=== PATIENT | female | born 1945 | race Caucasian/White ===

== ENCOUNTER 2023-02-02 18:08 | Emergency (ER) | payer MEDICARE, SELFPAY ==
[2023-02-02 18:10] VITALS: BP 171/80; PULSE 72; RESP 18; TEMP 36.8; O2SAT 98; BMI 29.2
--- NOTE | 2023-02-02 18:35 | HMH.EDGENADL ---
Discharge Plan Disposition Patient Disposition: Home, Self-Care Referrals Follow up/Referrals: Molina Keen [Primary Care Provider] - See instructions Activity Restrictions/Add. Instructions Additional Instructions/Restrictions: Bilateral conjunctivitis. The etiology of this could be allergic with the itching that you been feeling but we will be treating this for possible bacterial with the antibiotic solution that I gave you. You may put 1 to 2 drops in both eyes 4-6 times daily for 5 to 7 days. Additionally do cool compresses over this as well. Return with any worsening symptoms. Clinical Impressions Clinical Impression: Acute conjunctivitis, bilateral Discharge ED Provider: Jose Elias Johns General Adult HPI General Chief complaint: Eye Problems Stated complaint: BL eye pain Time Seen by Provider: 02/02/23 18:17 Mode of Arrival: Ambulatory Limitations: No Limitations Description of Symptoms (Recalled from ER Triage Doc. by RN): PT REPORTS BILATERAL EYE DISCHARGE AND REDNESS THAT STARTED THIS AM History of Present Illness HPI narrative: Patient is a 77-year-old female here with eye redness and discharge. This has been going on since this morning. States that it itches some but she has some pain associated with it as well. No trauma to her eye no foreign body sensation. Her visual acuity is normal and she is able to open her eye. No fevers or chills or other concomitant respiratory viral symptoms. No one sick around her. Related Data Allergies Allergy/AdvReac Type Severity Reaction Status Date / Time No Known Allergies Allergy Verified 02/02/23 18:24 [facility] Disclaimer: The information contained in this section may have been updated after the patient was seen, as this information can be updated by other users. Social History Smoking Status: Never smoker alcohol intake: never current occupational status: other Travel in the last 8 weeks: None ROS Obtained: Yes All systems reviewed & no additional complaints except as documented Physical Exam General General appearance: alert Eye Eye exam: Present conjunctival redness and discharge Respiratory Respiratory exam: Present normal lung sounds bilaterally Cardiovascular Cardiovascular exam: Present regular rate; Absent tachycardia Neurological Exam Neurological exam: Present alert Medical Decision Making Anthony Inquiry Pt receiving controlled substance: No Vital Signs: 02/02/23 18:10 Temperature 98.2 F Temperature Source Oral Pulse Rate [Radial] 72 Respiratory Rate 18 Blood Pressure [Right Arm] 171/80 H Blood Pressure Mean [Right Arm] 110 Blood Pressure Source [Right Arm] Automatic Cuff Blood Pressure Position [Right Arm] Sitting 02 Sat by Pulse Oximetry 98 Oxygen Delivery Method Room Air Medical Decision Narrative: Patient clinically has bilateral conjunctivitis. Etiology could be allergic viral or bacterial. Topical antibiotic solution in her eye box was provided to the patient she has been advised to take this 4-6 times a day for the next 5 to 7 days. Cool compresses were discussed as well as oral antihistamine agents for possible allergic reaction. Indistinguishable clinically what the causes but will treat for bacterial primarily. She was discharged in stable condition and advised to return with worsening symptoms Critical Care Time Critical Care Time Critical Care Time: No Attestation: On 02/02/23, the high probability of a clinically significant, sudden or life threatening deterioration of the following system(s) required my full and direct attention, intervention and personal management. The time I documented below is in addition to time spent performing reported procedures but includes the following listed in this critical care notation.
[2023-02-02 18:45] VITALS: BP 171/80; PULSE 72; RESP 16; TEMP 36.7
== END 2023-02-02 18:46 | disposition home or self-care (01) ==
PROVIDERS: Emergency Provider Student in an Organized Health Care Education/Training Program; PCP Orthopaedic Surgery
DX: H10.9 Unspecified conjunctivitis (principal)
CPT/HCPCS: 99283; 99284

== ENCOUNTER 2023-12-17 18:42 | Emergency (ER) | payer MEDICARE, SELFPAY ==
--- NOTE | 2023-12-17 19:18 | ED_ITS ---
<Statement entered by Tina Neves DO - 12/17/23 23:15> I was consulted by the DEVAN, and we discussed the complexity of the problems being addressed. I approved the treatment and management plan for this patient's care in the emergency department, thus performing a substantive portion of the medical decision making. Tina Neves DO Discharge Plan Disposition Patient Disposition: Home, Self-Care Condition: Good Prescriptions Prescriptions: New hydrocodone-acetaminophen 5-325 mg tablet 1 tab PO Q8H PRN (Reason: pain) Qty: 12 0RF Referrals Follow up/Referrals: Rafael Castro DO [Staff Physician] - See instructions Molina Keen [Referring] - See instructions Activity Restrictions/Add. Instructions Additional Instructions/Restrictions: You may utilize rest ice compression elevation. Please wear your walking boot anytime you are bearing weight. I have referred you to orthopedic surgeon please call the morning to make an appointment. Clinical Impressions Clinical Impression: Closed right fibular fracture Qualifiers: Encounter type: initial encounter Fibula location: distal Fracture morphology: unspecified fracture morphology Qualified Code(s): S82.831A - Other fracture of upper and lower end of right fibula, initial encounter for closed fracture Discharge ED Provider: Tina Neves General Adult HPI <MAE Fermin - Last Filed: 12/17/23 23:04> General Chief complaint: Extremity Injury, Lower Stated complaint: AO 12/17/23 1740 Injury right ankle Time Seen by Provider: 12/17/23 19:18 History of Present Illness HPI narrative: Patient presents for evaluation of her right lower extremity. [place] doing cho[place] and she turned abruptly and her ankle did not. She felt a pop at the time. She has not been able to bear weight on it since. Patient denies fall loss of consciousness shortness of breath fever chills hemoptysis hematochezia melena nausea vomit diarrhea. Related Data Previous Rx's Medication Instructions Recorded hydrocodone 5 mg-acetaminophen 325 1 tab PO Q8H PRN pain #12 tabs 12/17/23 mg tablet Allergies Allergy/AdvReac Type Severity Reaction Status Date / Time No Known Allergies Allergy Verified 02/02/23 18:24 PFSH <MAE Fermin - Last Filed: 12/17/23 23:04> PFS Disclaimer: The information contained in this section may have been updated after the patient was seen, as this information can be updated by other users. Social History (Updated 02/02/23 @ 18:36 by Jose Elias Johns MD) Smoking Status: Unknown if ever smoked alcohol intake: never current occupational status: other Travel in the last 8 weeks: None <MAE Fermin - Last Filed: 12/17/23 23:04> ROS Obtained: Yes Systems reviewed as appropriate & no additional complaints except as documented Physical Exam <MAE Fermin - Last Filed: 12/17/23 23:04> General General appearance: alert and in no apparent distress Respiratory Respiratory exam: Present normal lung sounds bilaterally Cardiovascular Cardiovascular exam: Present regular rate and normal rhythm Extremities Exam Extremities exam: Absent normal inspection (Patient has obvious deformity at the right ankle joint with ecchymosis and edema. She is neurovascularly intact distally.) Neurological Exam Neurological exam: Present alert, oriented X3 and CN II-XII intact Medical Decision Making <MAE Fermin - Last Filed: 12/17/23 23:04> Medical Records Medical records reviewed: Yes I reviewed the patient's medical records. Anthony Inquiry Pt receiving controlled substance: No Vital Signs: 12/17/23 19:30 12/17/23 21:29 Temperature 98.3 F 98.1 F Temperature Source Oral Oral Pulse Rate 78 Pulse Rate [Right Brachial] 65 Respiratory Rate 19 19 Blood Pressure 152/71 H Blood Pressure [Right Arm] 155/64 H Blood Pressure Mean [Right Arm] 94 Blood Pressure Source Automatic Cuff Blood Pressure Source [Right Arm] Automatic Cuff Blood Pressure Position Sitting Blood Pressure Position [Right Arm] Sitting 02 Sat by Pulse Oximetry 98 Oxygen Delivery Method Room Air Room Air Orders (Tests/Meds): ED MEDICATIONS Discontinued Medications Generic Name Dose Route Start Last Admin Trade Name Freq PRN Reason Stop Dose Admin Acetaminophen 1,000 mg 12/17/23 19:41 12/17/23 20:03 Acetaminophen 500mg Tab PO 12/17/23 19:42 1,000 mg ONCE ONE Administration Ketorolac Tromethamine 60 mg 12/17/23 19:41 12/17/23 20:03 Ketorolac 60mg/2ml Vial IM 12/17/23 19:42 60 mg ONCE ONE Administration Oxycodone HCl 5 mg 12/17/23 19:42 12/17/23 20:04 Oxycodone 5mg Immediate Release Tablet PO 12/17/23 19:43 5 mg ONCE ONE Administration ORDERS Category Date Time Status Ankle XR -Right minimum 3 Views [XR ankle RT min 3V] Exams 12/17/23 19:32 Completed Stat Foot XR right 2 views [XR foot RT 2V] Stat Exams 12/17/23 19:32 Completed Tibia/fibula XR right 2 views [XR tibia fibula RT 2V] Exams 12/17/23 19:32 Completed Stat Medical Decision Narrative: In summary patient is a 78-year-old female who presents to the emergency department for evaluation of right lower extremity. Patient is is hemodynamically stable upon arrival, afebrile. Physical exam is remarkable for obvious deformity of the right ankle joint with ecchymosis and edema but neurovascularly intact distally to the joint. Differential diagnosis includes fibula fracture, trimalleolar fracture, or other fracture morphology etc. Initial workup will be conducted with hematologic plain film x-ray. Initial interventions include Toradol tramadol oxycodone. Initial workup initiated and my informal interpretation shows a fractured fibula with radiologist read pending. Patient is still neurovascularly intact and has no evidence of compartment syndrome. Given this patient is appropriate for discharge with a walking boot and follow-up/referral to orthopedic surgery. Patient was given prescriptions for opiates less than 3 days worth. <Tina Neves, DO - Last Filed: 12/17/23 23:16> Anthony Inquiry Pt receiving controlled substance: Yes Anthony was queried for this patient: Yes Risks and benefits of using a controlled substance: were discussed with pt by me Vital Signs: 12/17/23 19:30 12/17/23 21:29 Temperature 98.3 F 98.1 F Temperature Source Oral Oral Pulse Rate 78 Pulse Rate [Right Brachial] 65 Respiratory Rate 19 19 Blood Pressure 152/71 H Blood Pressure [Right Arm] 155/64 H Blood Pressure Mean [Right Arm] 94 Blood Pressure Source Automatic Cuff Blood Pressure Source [Right Arm] Automatic Cuff Blood Pressure Position Sitting Blood Pressure Position [Right Arm] Sitting 02 Sat by Pulse Oximetry 98 Oxygen Delivery Method Room Air Room Air Orders (Tests/Meds): ED MEDICATIONS Discontinued Medications Generic Name Dose Route Start Last Admin Trade Name Freq PRN Reason Stop Dose Admin Acetaminophen 1,000 mg 12/17/23 19:41 12/17/23 20:03 Acetaminophen 500mg Tab PO 12/17/23 19:42 1,000 mg ONCE ONE Administration Ketorolac Tromethamine 60 mg 12/17/23 19:41 12/17/23 20:03 Ketorolac 60mg/2ml Vial IM 12/17/23 19:42 60 mg ONCE ONE Administration Oxycodone HCl 5 mg 12/17/23 19:42 12/17/23 20:04 Oxycodone 5mg Immediate Release Tablet PO 12/17/23 19:43 5 mg ONCE ONE Administration ORDERS Category Date Time Status Ankle XR -Right minimum 3 Views [XR ankle RT min 3V] Exams 12/17/23 19:32 Completed Stat Foot XR right 2 views [XR foot RT 2V] Stat Exams 12/17/23 19:32 Completed Tibia/fibula XR right 2 views [XR tibia fibula RT 2V] Exams 12/17/23 19:32 Completed Stat Medical Decision Narrative: In summary patient is a 78-year-old female who presents to the emergency department for evaluation of right lower extremity. Patient is is hemodynamically stable upon arrival, afebrile. Physical exam is remarkable for obvious deformity of the right ankle joint with ecchymosis and edema but neurovascularly intact distally to the joint. Differential diagnosis includes fibula fracture, trimalleolar fracture, or other fracture morphology etc. Initial workup will be conducted with hematologic plain film x-ray. Initial interventions include Toradol tramadol oxycodone. Initial workup initiated and my informal interpretation shows a fractured fibula with radiologist read pending. Patient is still neurovascularly intact and has no evidence of compartment syndrome. Given this patient is appropriate for discharge with a walking boot and follow-up/referral to orthopedic surgery. Patient was given prescriptions for opiates less than 3 days worth. DO Edinson: I independently interpreted x-ray prior to radiology read and noted that the patient had an acute distal fibular fracture without other obvious traumatic injury. Critical Care <MAE Fermin - Last Filed: 12/17/23 23:04> Critical Care Time Critical Care Time: No
--- OUTSIDE RECORDS SUMMARY | 2023-12-17 19:28 | XMS_ITS | Continuity of Care Document ---
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 Role Phone No Information Unavailable Unavailable Advance Directives Directive Yes / No Effective Date File Name No Information Encounters Encounter Description Practice Location Reason(s) For Visit Diagnoses Date Provider Providers Copied on Encounter [facility] , [address], [place], [address], [place] tel:[phone] [facility] [place] No Information No Information Family History Family Member Type Diagnosis Age At Onset No Information Payers Payer name Insurance type Covered green party ID Authoriza tion(s) No Information Social History Type Description Quantity Date Captured Comments Sex Female Smoking Status No Information Chief Complaint And Reason For Visit No Information Reason For Referral Reason For Referral No Information History Of Present Illness Encounter Date Complaint History Of Prese nt Illness No Information Functional Status Date Functional Assessmen t No Information Instructions Date Instruction Additional Infor mation No Information Assessments Type Assessment Date No Information Patient Care Teams Name Effective Dates (start - stop) Status Members No Information
[2023-12-17 19:30] VITALS: BP 155/64; PULSE 65; RESP 19; TEMP 36.8; O2SAT 98; BMI 34.3
--- NOTE | 2023-12-17 19:32 | XR_ITS ---
PROCEDURE INFORMATION: Exam: XR Right Tibia and Fibula Exam date and time: 12/17/2023 7:43 PM Age: 78 years old Clinical indication: Injury or trauma; Fall; Blunt trauma; Lower leg; Right TECHNIQUE: Imaging protocol: Radiologic exam of the right tibia and fibula. Views: 2 views. COMPARISON: CR XR ANKLE RT MIN 3V 12/17/2023 7:42 PM FINDINGS: Bones/joints: Acute nondisplaced distal fibula fracture and questionable avulsion fracture tip of the medial malleolus redemonstrated. No other definite acute fracture seen. Advanced degenerative changes of the knee. Soft tissues: Normal. IMPRESSION: Distal fibula fracture and questionable medial malleolar avulsion fracture.
--- NOTE | 2023-12-17 19:32 | XR_ITS ---
PROCEDURE INFORMATION: Exam: XR Right Foot Exam date and time: 12/17/2023 7:40 PM Age: 78 years old Clinical indication: Injury or trauma; Fall; Blunt trauma; Foot; Right TECHNIQUE: Imaging protocol: Radiologic exam of the right foot. Views: 1 or 2 views. COMPARISON: No relevant prior studies available. FINDINGS: Bones/joints: No acute fracture identified. Degenerative changes of the midfoot and 1st MTP joint and small heel spurs noted. Soft tissues: Normal. IMPRESSION: No acute abnormality.
--- NOTE | 2023-12-17 19:32 | XR_ITS ---
PROCEDURE INFORMATION: Exam: XR Right Ankle Exam date and time: 12/17/2023 7:42 PM Age: 78 years old Clinical indication: Injury or trauma; Fall; Blunt trauma; Ankle; Right TECHNIQUE: Imaging protocol: Radiologic exam of the right ankle. Views: 3 or more views. COMPARISON: CR Foot R 12/17/2023 7:40 PM FINDINGS: Bones/joints: Nondisplaced oblique acute fracture through the distal fibula metaphysis noted. Potential avulsion fracture versus residual of old trauma at the tip of the medial malleolus. Old healed distal diaphysis fibula fracture. Soft tissues: Normal. IMPRESSION: Acute distal fibula fracture. Questionable avulsion fracture tip of medial malleolus.
[2023-12-17] MEDS: KETOROLAC 60MG/2ML VIAL 60 MG IM (20:03)
[2023-12-17] MEDS: ACETAMINOPHEN 500MG TAB 1000 MG PO (20:03)
[2023-12-17] MEDS: OXYCODONE 5MG IMMEDIATE RELEASE TABLET 5 MG PO (20:04)
[2023-12-17 21:29] VITALS: BP 152/71; PULSE 78; RESP 19; TEMP 36.7; O2SAT 98
== END 2023-12-17 21:31 | disposition home or self-care (01) ==
PROVIDERS: Emergency Provider Emergency Medicine; PCP Family Medicine
DX: S82.831A Other fracture of upper and lower end of right fibula, initial encounter for closed fracture (principal); M25.571 Pain in right ankle and joints of right foot; X50.1XXA Overexertion from prolonged static or awkward postures, initial encounter
CPT/HCPCS: 73590; 73610; 73620; 96372; 99284